=== PATIENT | female | born 1995 | race Two or more races ===

== ENCOUNTER 2023-07-21 14:27 | Outpatient (CLI) | payer OTHER | END 2023-07-21 14:30 | disposition home or self-care (01) | LOC: PRENATAL 14:27 | PROVIDERS: ATTEND Obstetrics & Gynecology Maternal & Fetal Medicine | DX: O35.3XX0 Maternal care for (suspected) damage to fetus from viral disease in mother, not applicable or unspecified (principal); O44.00 Complete placenta previa NOS or without hemorrhage, unspecified trimester; Z3A.19 19 weeks gestation of pregnancy ==

== ENCOUNTER 2023-10-26 13:25 | Outpatient (CLI) | payer OTHER | END 2023-10-26 13:26 | disposition home or self-care (01) | LOC: PRENATAL 13:25 | PROVIDERS: ATTEND Obstetrics & Gynecology Maternal & Fetal Medicine | DX: O26.849 Uterine size-date discrepancy, unspecified trimester (principal); O36.8199 Decreased fetal movements, unspecified trimester, other fetus; Z3A.33 33 weeks gestation of pregnancy ==